=== PATIENT | female | born 1970 | race Hispanic/Latino ===

== ENCOUNTER 2019-07-22 08:16 | Emergency (ER) | payer SELFPAY ==
[~2019-07-22] VITALS: Ht 157.5 cm; Wt 70.0 kg
[2019-07-22] MEDS ORDERED: FLEXERIL PO (08:44)
[2019-07-22] MEDS ORDERED: IBUPROFEN600 MG PO (08:44)
[2019-07-22 08:55] VITALS: BP 112/62
== END 2019-07-22 09:14 | disposition home or self-care (01) | DRG 563 ==
LOC: ED 08:16 → EDBD 08:16 → ED 08:44
DX: S39.012A Strain of muscle, fascia and tendon of lower back, initial encounter (principal); M54.41 Lumbago with sciatica, right side; X58.XXXA Exposure to other specified factors, initial encounter